=== PATIENT | male | born 1970 | race Asian ===

== ENCOUNTER 2025-05-24 10:55 | Outpatient (CLI) | payer BC, SELFPAY | END 2025-05-24 10:56 | disposition home or self-care (01) | LOC: NFLDREF 05-26 12:34 | PROVIDERS: PCP Physician Assistant Medical; Referring Provider Physician Assistant Medical; Visit Provider Physician Assistant Medical | DX: R53.83 Other fatigue (principal); I26.99 Other pulmonary embolism without acute cor pulmonale; Z87.39 Personal history of other diseases of the musculoskeletal system and connective tissue; Z12.5 Encounter for screening for malignant neoplasm of prostate | CPT/HCPCS: 80053; 80061; 82306; 82607; 82728; 84443; 84550; G0103 ==